=== PATIENT | male | born 1980 | race Caucasian/White ===

== ENCOUNTER 2017-10-09 11:37 | Emergency (ER) | payer SELFPAY ==
[~2017-10-09] VITALS: Ht 185.4 cm; Wt 90.0 kg
[2017-10-09 11:47] VITALS: BP 144/95; PULSE 88; RESP 16; TEMP 98.7; O2SAT 99
--- NOTE | 2017-10-09 15:28 | PD ---
HPI Chief Complaint: Altered Mental Status Time Seen by Provider: 12:08 Travel History International Travel<30 days: No Contact w/Intl Traveler<30days: No Traveled to known affect area: No History of Present Illness HPI 37-year-old male presents to the emergency department via EMS. Apparently he was found in the street passed out. He is oriented and easily arousable. He reports drinking a pint of [place] today. He reports drinking daily. Denies suicidal ideation. He does not know if he injured himself in some way. He denies headache, vomiting, chest pain, shortness of breath, abdominal pain. Denies illicit drug use. Says he is just drunk. No known aggravating or relieving factors. Onset unknown. Duration unknown. Symptoms are moderate to severe in severity. No primary care provider. No known allergies. Denies significant past medical history. Has no other medical complaints. No other modifying factors or associated signs and symptoms. PFSH Past Medical History Medical History: Denies Significant Hx Tetanus Vaccination: < 5 Years Past Surgical History Surgical History: No Previous Surgery Social History Alcohol Use: Yes Tobacco Use: Yes Substance Use: No Allergies-Medications (Allergen,Severity, Reaction): Coded Allergies: No Known Allergies (Unverified , 10/09/17) Reported Meds & Prescriptions Reported Meds & Active Scripts Active No Active Prescriptions or Reported Medications Review of Systems Except as stated in HPI: all other systems reviewed are Neg Physical Exam Narrative GENERAL: Well-nourished, well-developed male patient, in no acute distress; smells of EtOH SKIN: Warm and dry. HEAD: Atraumatic. Normocephalic. EYES: Pupils equal and round. ENT: Mucosa pink and moist. NECK: Supple. Trachea midline. CARDIOVASCULAR: Regular rate and rhythm. No murmur appreciated. RESPIRATORY: No accessory muscle use. Clear to auscultation. Breath sounds equal bilaterally. GASTROINTESTINAL: Abdomen soft, non-tender, nondistended. Hepatic and splenic margins not palpable. Bowel sounds are active 4 quadrants. MUSCULOSKELETAL: No obvious deformities. No clubbing. No cyanosis. No edema. NEUROLOGICAL: Awake and alert. Oriented 4. No obvious cranial nerve deficits. Motor grossly within normal limits. Normal speech. Moves all extremities. 5/5 strength to all extremities. PSYCHIATRIC: Lethargic and easily arousable. Data Data Last Documented VS Vital Signs Date Time Temp Pulse Resp B/P (MAP) Pulse Ox O2 Delivery O2 Flow Rate FiO2 10/09/17 11:47 98.7 88 16 144/95 (111) [address] Brain W/O Iv Contrast(Rout) (10/09/17 ) MDM Medical Decision Making Medical Screen Exam Complete: Yes Emergency Medical Condition: Yes Medical Record Reviewed: Yes Differential Diagnosis Alcohol intoxication, alcohol abuse, alcohol dependence Narrative Course 37-year-old male that is intoxicated with alcohol. Apparently he was found passed out in a street. He is easily arousable and oriented 4. Reports alcohol use daily. Reports drinking a pint of [place] this morning. CT head ordered. Patient will be given time to sleep and sober up and will be reevaluated and discharged at a later time when clinically sober and able to ambulate. Instructed patient to follow up with primary care provider. Patient verbalizes understanding and agreement with treatment plan. Patient is medically cleared and stable for discharge. Discussed reasons to return to the emergency department. Patient agrees with treatment plan. The patients vital signs are stable and the patient is stable for outpatient follow-up and treatment. Patient discharged home, stable and in no acute distress. Diagnosis Primary Impression: Alcohol intoxication Qualified Codes: F10.920 - Alcohol use, unspecified with intoxication, uncomplicated Referrals: [facility] (Out patient) [facility] Primary Care Physician Esdras MANCERA Behavior[facility] Patient Instructions: Abuse of Alcohol (ED), Alcohol Dependence (ED), Alcohol Intoxication (ED), General Instructions Additional Instructions: Stop drinking alcohol Follow up in the community for support, such as Alcoholics Anonymous Follow-up with psychiatry Follow-up with primary care provider Follow-up with John Barbosa Return to the emergency department immediately with worsening of symptoms Med/Other Pt SpecificInfo: No Change to Meds, No Meds Exist/No RX given Scripts No Active Prescriptions or Reported Meds Disposition: 01 DISCHARGE HOME Condition: Stable Tiffanie Rhoades Oct 09, 2017 15:28
--- NOTE | 2017-10-09 15:32 | RADRPT ---
EXAM DATE/TIME: 10/09/2017 15:12 [place] COMPARISON: No previous studies available for comparison. INDICATIONS : Altered mental status, found on street passed out. RADIATION DOSE: 43.18 CTDIvol (mGy) MEDICAL HISTORY : None SURGICAL HISTORY : None. ENCOUNTER: Initial ACUITY: 1 day PAIN SCALE: 0/10 LOCATION: cranial TECHNIQUE: Multiple contiguous axial images were obtained of the head. Using automated exposure control and adj ustment of the mA and/or kV according to patient size, radiation dose was kept as low as reasonably a chievable to obtain optimal diagnostic quality images. DICOM format image data is available electro nically for review and comparison. FINDINGS: CEREBRUM: The ventricles are normal for age. No evidence of midline shift, mass lesion, hemorrhage or acute in farction. No extra-axial fluid collections are seen. POSTERIOR FOSSA: The cerebellum and brainstem are intact. The 4th ventricle is midline. The cerebellopontine angle i s unremarkable. EXTRACRANIAL: The visualized portion of the orbits is intact. SKULL: The calvaria is intact. No evidence of skull fracture. CONCLUSION: Negative for acute process. Luis Daniel Reese MD FACR on October 09, 2017 at 15:30 Board Certified Radiologist. This report was verified electronically.
[2017-10-09 20:06] VITALS: BP 123/82; PULSE 91; RESP 16; TEMP 98.7; O2SAT 97
== END 2017-10-09 20:16 | disposition home or self-care (01) ==
LOC: NEPD 11:37
DX: F10.920 Alcohol use, unspecified with intoxication, uncomplicated (principal); Z72.0 Tobacco use
CPT/HCPCS: 70450; 99283